=== PATIENT | male | born 1960 | race Caucasian/White ===

== ENCOUNTER 2016-10-19 04:31 | Inpatient (IN) | payer MEDICAID ==
[~2016-10-19] VITALS: Ht 188 cm; Wt 98.0 kg
[~2016-10-19 04:31] MED LIST: ALBU18HF INH; ALBU2.5V NPPB; ALBU2.5V11 NEB; AMOX1TAB64 PO; BECL8.7A6 INH; BENZ100C17 PO; LEVO750T26 PO; MONT10TA6 PO; PRED20TA PO
[2016-10-19] MEDS ORDERED: methylPREDNISolone SOD SUCC 125 MG/2 ML ONE (04:38)
[2016-10-19] MEDS ORDERED: FAMOTIDINE 20 MG/2 ML ONE (04:39)
[2016-10-19] MEDS ORDERED: SODIUM CHLORIDE 0.9% 1,000 ML IV ONE (04:39)
[2016-10-19] MEDS ORDERED: ALBUTEROL/IPRATROPIUM 2.5MG/0.5MG, 3 ML ONE ×2 (04:52→06:37)
[2016-10-19] MEDS ORDERED: methylPREDNISolone SOD SUCC 125 MG/2 ML IVP ONE (05:00)
[2016-10-19] MEDS ORDERED: ALBUTEROL/IPRATROPIUM 2.5MG/0.5MG, 3 ML NPPB PRN (05:00)
[2016-10-19] MEDS ORDERED: SODIUM CHLORIDE FLUSH 10ML SYR IVF ONE (05:00)
[2016-10-19] MEDS ORDERED: FAMOTIDINE 20 MG/2 ML IVPush ONE (05:00)
[2016-10-19 05:27] LABS: HEMATOCRIT 49.1 % (39.2-51.8); HEMOGLOBIN 16.4 g/dL (13.7-18.0)
[2016-10-19 05:30] LABS: ABG COLLECTION SITE LEFT RADIAL; COLLATERAL CIRCULATION TESTING NORMAL
[2016-10-19 05:37] LABS: BLOOD UREA NITROGEN 34 mg/dL (7-18)
[2016-10-19] MEDS ORDERED: LORazepam 2 MG/ML, 1ML ONE (05:48)
[2016-10-19] MEDS ORDERED: LORazepam 2 MG/ML, 1ML IVPush ONE (06:00)
[2016-10-19] MEDS ORDERED: SODIUM CHLORIDE FLUSH 10ML SYR IVF PRN (06:30)
[2016-10-19] MEDS ORDERED: ONDANSETRON 2MG/ML, 2ML IVPush PRN (08:00)
[2016-10-19] MEDS ORDERED: LABETALOL 5MG/ML, 20ML IVPush PRN (08:00)
[2016-10-19] MEDS ORDERED: ONDANSETRON ODT 4 MG PO PRN (08:00)
[2016-10-19] MEDS ORDERED: POLYETHYLENE GLYCOL 17 GM PACKET PO PRN (08:00)
[2016-10-19] MEDS ORDERED: TEMPLATE NON-FORMULARY MED. (Albuterol Sulfate (Ventolin Hfa) 2 PUFF(S)) INH PRN (08:00)
[2016-10-19] MEDS ORDERED: BECLOMETHASONE DIPROPIONATE 40 MCG INH SCH (09:00)
[2016-10-19] MEDS: SENNA/DOCUSATE TABLET PO SCH (09:00)
[2016-10-19 09:10] VITALS: BP 123/81
[2016-10-19] MEDS ORDERED: ALBUTEROL SULFATE 2.5 MG/3 ML NPPB SCH (10:00)
[2016-10-19] MEDS: ENOXAPARIN 40 MG/0.4 ML SQ SCH (10:32)
[2016-10-19] MEDS: SODIUM CHLORIDE 0.9% 1,000 ML IV SCH ×2 (10:32→20:31)
[2016-10-19] MEDS: MONTELUKAST 10 MG TABLET PO SCH (10:33)
[2016-10-19] MEDS: BENZONATATE 100 MG CAPSULE PO SCH ×3 (10:33→20:31)
[2016-10-19] MEDS: DOXYCYCLINE 100MG TABLET PO SCH ×2 (10:33→20:31)
[2016-10-19] MEDS: ALBUTEROL/IPRATROPIUM 2.5MG/0.5MG, 3 ML NPPB SCH ×3 (11:00→20:35)
[2016-10-19] MEDS: methylPREDNISolone SOD SUCC 125 MG/2 ML IVPush SCH ×2 (11:43→17:10)
[2016-10-19 12:01] LABS: DAU SCREEN DISCLAIMER
[2016-10-19 13:01] LABS: HIV 1&2 ANTIBODY SCREEN Nonreactive (Nonreactive); HIV-1 p24 ANTIGEN Nonreactive (Nonreactive)
[2016-10-19 13:55] VITALS: BP 120/74
[2016-10-19] MEDS: LORazepam 2 MG/ML, 1ML IVPush PRN ×2 (14:05→20:31)
[2016-10-19 18:53] VITALS: BP 108/56
[2016-10-20] MEDS: methylPREDNISolone SOD SUCC 125 MG/2 ML IVPush SCH ×3 (00:38→11:31)
[2016-10-20 02:20] VITALS: BP 134/80
[2016-10-20] MEDS ORDERED: ZIPRASIDONE 20MG CAPSULE PO ONE (02:30)
[2016-10-20] MEDS: SODIUM CHLORIDE 0.9% 1,000 ML IV SCH ×3 (04:11→19:22)
[2016-10-20 05:14] LABS: HEMATOCRIT 41.4 % (39.2-51.8); HEMOGLOBIN 13.9 g/dL (13.7-18.0); WHITE BLOOD COUNT 11.2 x10^3/uL (3.4-10)
[2016-10-20 05:19] LABS: ASPARTATE AMINO TRANSFERASE 23 U/L (15-37); BLOOD UREA NITROGEN 31 mg/dL (7-18)
[2016-10-20] MEDS: ALBUTEROL/IPRATROPIUM 2.5MG/0.5MG, 3 ML NPPB SCH ×4 (07:20→18:00)
[2016-10-20 07:53] VITALS: BP 123/74
[2016-10-20] MEDS: ENOXAPARIN 40 MG/0.4 ML SQ SCH (08:00)
[2016-10-20] MEDS: DOXYCYCLINE 100MG TABLET PO SCH ×2 (08:19→20:56)
[2016-10-20] MEDS: BENZONATATE 100 MG CAPSULE PO SCH ×3 (08:20→20:56)
[2016-10-20] MEDS: SENNA/DOCUSATE TABLET PO SCH (08:20)
[2016-10-20] MEDS: MONTELUKAST 10 MG TABLET PO SCH (08:20)
[2016-10-20] MEDS: FLUTICASONE/VILANTEROL 100-25MCG/INH INH SCH (09:20)
[2016-10-20 12:00] VITALS: BP 130/59
[2016-10-20] MEDS: LORazepam 2 MG/ML, 1ML IVPush PRN ×2 (17:59→22:06)
[2016-10-20 18:36] VITALS: BP 138/58
[2016-10-21] MEDS: SODIUM CHLORIDE 0.9% 1,000 ML IV SCH (03:05)
[2016-10-21 03:20] VITALS: BP 133/61
[2016-10-21 05:10] LABS: HEMATOCRIT 39.5 % (39.2-51.8); HEMOGLOBIN 13.2 g/dL (13.7-18.0); WHITE BLOOD COUNT 17.5 x10^3/uL (3.4-10)
[2016-10-21 05:13] LABS: BLOOD UREA NITROGEN 25 mg/dL (7-18)
[2016-10-21] MEDS: ALBUTEROL/IPRATROPIUM 2.5MG/0.5MG, 3 ML NPPB SCH ×4 (06:19→19:46)
[2016-10-21] MEDS: LORazepam 2 MG/ML, 1ML IVPush PRN (07:25)
[2016-10-21 07:41] VITALS: BP 120/64
[2016-10-21] MEDS: ENOXAPARIN 40 MG/0.4 ML SQ SCH (07:47)
[2016-10-21] MEDS: SENNA/DOCUSATE TABLET PO SCH (07:52)
[2016-10-21] MEDS: MONTELUKAST 10 MG TABLET PO SCH (07:53)
[2016-10-21] MEDS: FLUTICASONE/VILANTEROL 100-25MCG/INH INH SCH (07:53)
[2016-10-21] MEDS: DOXYCYCLINE 100MG TABLET PO SCH ×2 (07:54→21:12)
[2016-10-21] MEDS: BENZONATATE 100 MG CAPSULE PO SCH ×3 (07:54→21:12)
[2016-10-21] MEDS: GUAIFENESIN/DM 100-10MG, 5ML UDC PO PRN ×2 (09:57→16:07)
[2016-10-21] MEDS ORDERED: POTASSIUM CHLORIDE 20 MEQ TAB.ER.PRT PO ONE ×2 (10:00→14:00)
[2016-10-21 12:00] VITALS: BP 146/78
[2016-10-21] MEDS ORDERED: FUROSEMIDE 20 MG/2 ML IV ONE (13:00)
[2016-10-21 18:48] VITALS: BP 156/76
[2016-10-21] MEDS ORDERED: MAGNESIUM SULFATE PMX 2GM/50ML 50 ML IV ONE (22:30)
[2016-10-22 01:57] VITALS: BP 139/78
[2016-10-22 05:58] LABS: BLOOD UREA NITROGEN 18 mg/dL (7-18)
[2016-10-22 05:59] LABS: HEMATOCRIT 39.7 % (39.2-51.8); HEMOGLOBIN 13.5 g/dL (13.7-18.0); WHITE BLOOD COUNT 10.7 x10^3/uL (3.4-10)
[2016-10-22 06:04] LABS: ASPARTATE AMINO TRANSFERASE 15 U/L (15-37)
[2016-10-22 06:40] VITALS: BP 146/87
[2016-10-22] MEDS: ALBUTEROL/IPRATROPIUM 2.5MG/0.5MG, 3 ML NPPB SCH ×2 (07:09→11:05)
[2016-10-22] MEDS: SENNA/DOCUSATE TABLET PO SCH (09:00)
[2016-10-22] MEDS: ENOXAPARIN 40 MG/0.4 ML SQ SCH (09:26)
[2016-10-22] MEDS: BENZONATATE 100 MG CAPSULE PO SCH (09:27)
[2016-10-22] MEDS: MONTELUKAST 10 MG TABLET PO SCH (09:27)
[2016-10-22] MEDS: FLUTICASONE/VILANTEROL 100-25MCG/INH INH SCH (09:27)
[2016-10-22] MEDS: DOXYCYCLINE 100MG TABLET PO SCH (09:27)
[2016-10-22] MEDS: GUAIFENESIN/DM 100-10MG, 5ML UDC PO PRN (10:52)
[2016-10-22] MEDS ORDERED: PRED5TAB PO (11:03)
[2016-10-22] MEDS ORDERED: DOXY100T PO (11:03)
[2016-10-22 12:53] VITALS: BP 152/86
== END 2016-10-22 13:40 | disposition left against medical advice (07) | DRG 189 ==
LOC: ED 05:02 → EDIP 06:09 → 3NE 07:35
PROVIDERS: ADMIT Hospitalist; ATTEND Family Medicine
DX: J96.01 Acute respiratory failure with hypoxia (principal); N17.0 Acute kidney failure with tubular necrosis; E44.1 Mild protein-calorie malnutrition; J44.1 Chronic obstructive pulmonary disease with (acute) exacerbation; F15.10 Other stimulant abuse, uncomplicated; Z68.27 Body mass index [BMI] 27.0-27.9, adult; F19.94 Other psychoactive substance use, unspecified with psychoactive substance-induced mood disorder; F31.9 Bipolar disorder, unspecified; F41.9 Anxiety disorder, unspecified; Z72.0 Tobacco use; Z87.01 Personal history of pneumonia (recurrent)
CPT/HCPCS: 36415; 36600; 71010; 71020; 80048; 80053; 80076; 80307; 81001; 82040; 82803; 83036; 83735; 84439; 84443; 85025; 86592; 86703; 87040; 87899; 93005; 94640; J1650; J7613; J7620; G0435; J1940; J2060; J2930; J3475; J7030; J7512; S0028

== ENCOUNTER 2016-10-28 02:01 | Emergency (ER) | payer MEDICAID ==
[~2016-10-28 02:01] MED LIST changes: +DOXY100T PO; +PRED5TAB PO
[2016-10-28] MEDS ORDERED: methylPREDNISolone SOD SUCC 125 MG/2 ML IVP ONE (02:30)
[2016-10-28] MEDS ORDERED: SODIUM CHLORIDE 0.9% 1,000ML IVBOLUS ONE (02:30)
[2016-10-28] MEDS ORDERED: methylPREDNISolone SOD SUCC 125 MG/2 ML ONE (02:45)
[2016-10-28 02:52] LABS: BLOOD UREA NITROGEN 25 mg/dL (7-18)
[2016-10-28 02:57] LABS: IS PT STATUS REG ER OR PRE ER? YES
[2016-10-28 02:58] LABS: HEMATOCRIT 46.7 % (39.2-51.8); HEMOGLOBIN 15.6 g/dL (13.7-18.0); WHITE BLOOD COUNT 9.5 x10^3/uL (3.4-10)
[2016-10-28 04:07] VITALS: BP 120/64
== END 2016-10-28 04:09 | disposition home or self-care (01) ==
LOC: ED 03:02
DX: J44.1 Chronic obstructive pulmonary disease with (acute) exacerbation (principal); F10.120 Alcohol abuse with intoxication, uncomplicated; F15.129 Other stimulant abuse with intoxication, unspecified; F17.210 Nicotine dependence, cigarettes, uncomplicated; F31.9 Bipolar disorder, unspecified
CPT/HCPCS: 36415; 71010; 80048; 80307; 82040; 84484; 85025; 93005; 94640; 96361; 96374; 99285; J2930; J7030; G0479

== ENCOUNTER 2016-10-29 15:06 | Emergency (ER) | payer MEDICAID ==
[~2016-10-29] VITALS: Ht 188 cm; Wt 95.0 kg
[2016-10-29 15:10] VITALS: BP 136/68
[2016-10-29] MEDS ORDERED: LIDOCAINE 1%, 20ML INFIL ONE (16:00)
== END 2016-10-29 16:57 | disposition left against medical advice (07) ==
LOC: ED 16:00
DX: Z53.21 Procedure and treatment not carried out due to patient leaving prior to being seen by health care provider (principal)